=== PATIENT | female | born 1970 | race Caucasian/White ===

== ENCOUNTER → 2017-04-08 | Outpatient (CLI) | payer MEDICARE | LOC: MAMO 07:47 | DX: Z12.31 Encounter for screening mammogram for malignant neoplasm of breast (principal); N64.89 Other specified disorders of breast | CPT/HCPCS: G0202 ==

== ENCOUNTER → 2020-11-08 | Outpatient (CLI) | payer OTHER ==
[~2020-11-08] MED LIST: ANTI-DIARRHEAL2 MG PO; CO Q-10200 MG PO; HAIR SKIN NAILS PO; KRILL OIL PO; OMEPRAZOLE40 MG PO; PRAVACHOL40 MG PO; PROBIOTIC FORM1 EACH PO; PROZAC20 MG PO; XYZAL5 MG OP; [UNRECOGNIZED DRUG - OTHER] PO
== END ==
LOC: MAMO 10-01 11:00
DX: Z12.31 Encounter for screening mammogram for malignant neoplasm of breast (principal)
CPT/HCPCS: 77063; 77067

== ENCOUNTER 2021-10-15 14:11 | Emergency (ER) | payer OTHER | END 2021-10-15 17:41 | disposition home or self-care (01) | LOC: ER1 14:11 | DX: U07.1 COVID-19 (principal); Z23 Encounter for immunization | CPT/HCPCS: 99283; M0245 ==

== ENCOUNTER → 2022-01-26 | Outpatient (CLI) | payer OTHER | LOC: MAMO 11-10 11:00 | DX: Z12.31 Encounter for screening mammogram for malignant neoplasm of breast (principal) | CPT/HCPCS: 77063; 77067 ==